=== PATIENT | male | born 1955 | race African-American/Black ===

== ENCOUNTER 2022-07-03 08:29 | Emergency (ER) | payer BC, MEDICAID ==
[~2022-07-03] VITALS: Ht 188 cm; Wt 72.6 kg
[2022-07-03 09:04] VITALS: BP_SYST 110
[2022-07-03] MEDS ORDERED: HYDROcodone/ACETAMIN 5-325 MG TAB (NORCO/ VICODIN) PO ONE (09:15)
[2022-07-03] MEDS ORDERED: NEU300 PO ×2 (09:41→11:25)
--- NOTE | 2022-07-03 10:50 | NUR ---
Patient to hallway to [facility] for evaluation. Side rails up. Report given to Nhi. Addendum: 07/03/22 at 1158 by [email or web address] Patient to [facility] to [facility] for evaluation. Side rails up.
--- NOTE | 2022-07-03 11:00 | NUR ---
ARIAS Marie at bedside examining patient.
[2022-07-03] MEDS ORDERED: BACI15OI13 TP (11:25)
[2022-07-03] MEDS ORDERED: HYDR-3917 PO (11:25)
[2022-07-03 11:49] VITALS: BP_SYST 130
--- NOTE | 2022-07-03 11:58 | NUR ---
Patient given written and verbal discharge instructions and verbalizes understanding. ER MD discussed with patient the results and treatment provided. Patient in stable condition. ID arm band removed. Rx of given. Patient educated on pain management and to follow up with PMD. Opportunity for questions provided and answered. Medication side effect fact sheet provided. Pt waiting in main ED for ride home
== END 2022-07-03 11:50 | disposition home or self-care (01) ==
LOC: SED 08:29
DX: Z76.0 Encounter for issue of repeat prescription (principal); Z89.422 Acquired absence of other left toe(s); E11.9 Type 2 diabetes mellitus without complications; I11.0 Hypertensive heart disease with heart failure; I50.9 Heart failure, unspecified; F12.90 Cannabis use, unspecified, uncomplicated; Z79.899 Other long term (current) drug therapy
CPT/HCPCS: 99283

== ENCOUNTER 2022-07-08 22:11 | Emergency (ER) | payer BC, MEDICAID ==
[~2022-07-08] VITALS: Ht 188 cm; Wt 81.6 kg
[~2022-07-08 22:11] MED LIST: BACI15OI13 TP; HYDR-3917 PO; NEU300 PO
[2022-07-08 22:16] VITALS: BP_SYST 122
--- NOTE | 2022-07-08 22:22 | NUR ---
PT HERE BIB BLS TRANSPORT C/O BLE PAIN. 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 DENIES FEVER, DENIES TRAUMA. PMH:DM PT AAOX4, NO SOB NOTED AND NAD. PENDING MD DIAZ.
[2022-07-08] MEDS ORDERED: HYDROcodone/ACETAMIN 5-325 MG TAB (NORCO/ VICODIN) PO ONE (22:45)
--- NOTE | 2022-07-08 22:45 | NUR ---
ARIAS Stokes at bedside.
--- NOTE | 2022-07-08 22:52 | NUR ---
Patient to ER bed 4 to gown for evaluation. Side rails up. Report given to Radha REYES.
--- NOTE | 2022-07-08 22:53 | NUR ---
Lab at bedside.
--- NOTE | 2022-07-08 22:55 | NUR ---
Patient A/Ox4, VSS, ambulatory with assistance, resp even and unlabored. Patient lying in bed with safety precautions in place and connected to monitor. Nad noted at this time.
[2022-07-08] MEDS ORDERED: NEU300 PO (23:03)
[2022-07-08] MEDS ORDERED: HYDR-3917 PO (23:03)
[2022-07-08 23:05] LABS: BASOPHILS % (AUTO) 0.4 % (0.0-2.0); EOSINOPHILS # (AUTO) 0.1 K/uL (0.0-0.4); EOSINOPHILS % (AUTO) 1.8 % (0.0-4.0); HEMATOCRIT 33.8 % (36-54); HEMOGLOBIN 10.7 g/dL (14.0-18.0); LYMPHOCYTES # (AUTO) 1.5 K/uL (1.0-5.5); LYMPHOCYTES % (AUTO) 18.2 % (20.5-51.5); MEAN CORPUSCULAR HEMOGLOBIN 26 pg (27-31); MEAN CORPUSCULAR HGB CONC 32 % (32-36); MEAN CORPUSCULAR VOLUME 83 fL (79.0-98.0); MONOCYTES # (AUTO) 0.8 K/uL (0.0-1.0); MONOCYTES % (AUTO) 9.5 % (1.7-9.3); NEUTROPHILS # (AUTO) 5.7 K/uL (1.8-7.7); NEUTROPHILS % (AUTO) 70.1 % (40.0-70.0); PLATELET COUNT (AUTO) 207 K/uL (130-430); RED BLOOD CELL COUNT(AUTO) 4.09 MIL/uL (4.2-6.2); RED CELL DISTRIBUTION WIDTH 15.9 % (9.0-15.0); WHITE BLOOD COUNT (AUTO) 8.2 K/uL (4.8-10.8)
[2022-07-08 23:17] LABS: CALCIUM 8.7 mg/dL (8.4-11.0); CREATININE 0.79 mg/dL (0.55-1.30)
[2022-07-09 00:10] VITALS: BP_SYST 122
--- NOTE | 2022-07-09 00:10 | NUR ---
Patient given written and verbal discharge instructions and verbalizes understanding. ER MD discussed with patient the results and treatment provided. Patient in stable condition. ID arm band removed. Rx of Gabapentin and [place] given. Patient educated on pain management and to follow up with PMD. Pain Scale 2/10. Opportunity for questions provided and answered. Medication side effect fact sheet provided. Patient A/Ox4, VSS, resp even and unlabored. Patient accompanied by son and in stable condition upon discharge.
== END 2022-07-09 00:10 | disposition home or self-care (01) ==
LOC: SED 22:11
DX: Z89.432 Acquired absence of left foot (principal); M79.672 Pain in left foot; E11.9 Type 2 diabetes mellitus without complications; I11.0 Hypertensive heart disease with heart failure; I50.9 Heart failure, unspecified; F12.90 Cannabis use, unspecified, uncomplicated; Z79.899 Other long term (current) drug therapy
CPT/HCPCS: 36415; 80048; 85025; 99283

== ENCOUNTER 2022-08-28 21:52 | Inpatient (IN) | payer BC, MEDICAID ==
[~2022-08-28] VITALS: Ht 188 cm; Wt 65.3 kg
[2022-08-28 22:12] VITALS: BP_SYST 132
[2022-08-28] MEDS ORDERED: AMPICILLIN SODIUM/SULBACTAM NA 3 GM in NS 100 ML IV ONE (22:15)
[2022-08-28] MEDS ORDERED: NACL 0.9% 2,000 ML IV ONE (22:15)
[2022-08-28 22:49] LABS: BASOPHILS # (AUTO) 0.1 K/uL (0.0-0.2); BASOPHILS % (AUTO) 0.7 % (0.0-2.0); EOSINOPHILS # (AUTO) 0.2 K/uL (0.0-0.4); EOSINOPHILS % (AUTO) 2.2 % (0.0-4.0); HEMATOCRIT 32.3 % (36-54); LYMPHOCYTES # (AUTO) 2.3 K/uL (1.0-5.5); LYMPHOCYTES % (AUTO) 28.7 % (20.5-51.5); MEAN CORPUSCULAR HEMOGLOBIN 25 pg (27-31); MEAN CORPUSCULAR HGB CONC 31 % (32-36); MEAN CORPUSCULAR VOLUME 79 fL (79.0-98.0); MONOCYTES # (AUTO) 0.9 K/uL (0.0-1.0); MONOCYTES % (AUTO) 10.8 % (1.7-9.3); NEUTROPHILS # (AUTO) 4.5 K/uL (1.8-7.7); NEUTROPHILS % (AUTO) 57.6 % (40.0-70.0); PLATELET COUNT (AUTO) 182 K/uL (130-430); RED CELL DISTRIBUTION WIDTH 17.8 % (9.0-15.0); WHITE BLOOD COUNT (AUTO) 7.9 K/uL (4.8-10.8)
[2022-08-28 23:01] LABS: CALCIUM 8.3 mg/dL (8.4-11.0); CREATININE 0.78 mg/dL (0.55-1.30)
[2022-08-28 23:06] LABS: ALBUMIN 2.8 g/dL (3.4-4.8); TOTAL BILIRUBIN 0.3 mg/dL (0.0-1.0)
[2022-08-29] MEDS ORDERED: AMPICILLIN SODIUM/SULBACTAM NA 3 GM VIAL ONE (00:31)
[2022-08-29] MEDS ORDERED: HYDROcodone/ACETAMIN 5-325 MG TAB (NORCO/ VICODIN) PO PRN ×2 (02:00→10:15)
[2022-08-29] MEDS ORDERED: ACETAMINOPHEN 325 MG TABLET PO PRN (02:00)
[2022-08-29 03:20] VITALS: BP_SYST 128
[2022-08-29 08:00] VITALS: BP_SYST 135
[2022-08-29] MEDS ORDERED: LORazepam 2 MG/ML VIAL IVP PRN (10:15)
[2022-08-29] MEDS ORDERED: ONDANSETRON HCL 4 MG/2 ML VIAL IVP PRN (10:15)
[2022-08-29] MEDS ORDERED: HYDROcodone/ACETAMIN 10-325 MG TAB PO PRN (10:15)
[2022-08-29] MEDS ORDERED: NALOXONE HCL 0.4 MG/ML AMP (NARCAN) IVP PRN ×2 (10:15)
[2022-08-29] MEDS ORDERED: INSULIN REGULAR, HUMAN 100 UNITS/ML, 3 ML VIAL (humuLIN R) SUBCUT PRN (10:15)
[2022-08-29 11:13] VITALS: BP_SYST 135
[2022-08-29] MEDS ORDERED: AMPICILLIN SODIUM/SULBACTAM NA 1.5 GM in NS 50 ML IV SCH (12:00)
[2022-08-29] MEDS ORDERED: NORMAL SALINE 5 ML DISP.SYRIN IVF SCH ×2 (14:00)
[2022-08-29] MEDS ORDERED: GABAPENTIN 300 MG CAPSULE PO SCH (15:00)
[2022-08-29] MEDS ORDERED: BACITRACIN ZINC 15 GM TOPICAL OINTMENT TP SCH (21:00)
== END 2022-08-29 12:40 | disposition left against medical advice (07) | DRG 565 ==
LOC: SED 21:52 → SMU 08-29 02:11
PROVIDERS: ADMIT Preventive Medicine Preventive Medicine/Occupational Environmental Medicine; ATTEND Preventive Medicine Preventive Medicine/Occupational Environmental Medicine
DX: T87.43 Infection of amputation stump, right lower extremity (principal); E44.0 Moderate protein-calorie malnutrition; L03.115 Cellulitis of right lower limb; D64.9 Anemia, unspecified; E11.51 Type 2 diabetes mellitus with diabetic peripheral angiopathy without gangrene; E11.65 Type 2 diabetes mellitus with hyperglycemia; E83.52 Hypercalcemia; E88.09 Other disorders of plasma-protein metabolism, not elsewhere classified; I10 Essential (primary) hypertension; I25.10 Atherosclerotic heart disease of native coronary artery without angina pectoris; Z20.822 Contact with and (suspected) exposure to COVID-19; E11.21 Type 2 diabetes mellitus with diabetic nephropathy; Y83.5 Amputation of limb(s) as the cause of abnormal reaction of the patient, or of later complication, without mention of misadventure at the time of the procedure; R74.01 Elevation of levels of liver transaminase levels; Z53.29 Procedure and treatment not carried out because of patient's decision for other reasons; Y92.89 Other specified places as the place of occurrence of the external cause; Z89.422 Acquired absence of other left toe(s)
CPT/HCPCS: 36415; 80053; 83605; 85025; 87040; 99285; J0295